=== PATIENT | female | born 1950 | race Caucasian/White ===

== ENCOUNTER 2019-02-07 03:54 | Inpatient (IN) | payer MEDICARE ==
[~2019-02-07] VITALS: Ht 170.2 cm; Wt 106.5 kg
[2019-02-15 13:22] VITALS: BP 107/67
== END 2019-02-15 16:50 | disposition home health service (06) | DRG 314 ==
LOC: ED 05:19 → EDIP 05:20 → CCU 06:06 → 5SO 17:33 → DCLOUNGE 02-15 16:36
PROVIDERS: ADMIT Internal Medicine; ATTEND Internal Medicine
PROC: 5A2204Z Restoration of Cardiac Rhythm, Single (ICD-10-PCS; principal; 2019-02-07)
PROC: 0W9D3ZZ Drainage of Pericardial Cavity, Percutaneous Approach (ICD-10-PCS; 2019-02-10)
PROC: 30233N1 Transfusion of Nonautologous Red Blood Cells into Peripheral Vein, Percutaneous Approach (ICD-10-PCS; 2019-02-11)
PROC: 02HV33Z Insertion of Infusion Device into Superior Vena Cava, Percutaneous Approach (ICD-10-PCS; 2019-02-15)
PROC: B5181ZA Fluoroscopy of Superior Vena Cava using Low Osmolar Contrast, Guidance (ICD-10-PCS; 2019-02-15)
PROC: B548ZZA Ultrasonography of Superior Vena Cava, Guidance (ICD-10-PCS; 2019-02-15)
DX: I30.1 Infective pericarditis (principal); E43 Unspecified severe protein-calorie malnutrition; I50.43 Acute on chronic combined systolic (congestive) and diastolic (congestive) heart failure; I13.0 Hypertensive heart and chronic kidney disease with heart failure and stage 1 through stage 4 chronic kidney disease, or unspecified chronic kidney disease; E87.1 Hypo-osmolality and hyponatremia; N39.0 Urinary tract infection, site not specified; N18.4 Chronic kidney disease, stage 4 (severe); N17.9 Acute kidney failure, unspecified; R65.10 Systemic inflammatory response syndrome (SIRS) of non-infectious origin without acute organ dysfunction; I31.3 Pericardial effusion (noninflammatory); D63.8 Anemia in other chronic diseases classified elsewhere; E03.9 Hypothyroidism, unspecified; D75.82 Heparin induced thrombocytopenia (HIT); K74.60 Unspecified cirrhosis of liver; E11.22 Type 2 diabetes mellitus with diabetic chronic kidney disease; T50.1X5A Adverse effect of loop [high-ceiling] diuretics, initial encounter; I48.0 Paroxysmal atrial fibrillation; Z90.710 Acquired absence of both cervix and uterus; Z87.891 Personal history of nicotine dependence; Z82.49 Family history of ischemic heart disease and other diseases of the circulatory system; Z79.4 Long term (current) use of insulin; Z87.442 Personal history of urinary calculi; Z90.49 Acquired absence of other specified parts of digestive tract; Y92.89 Other specified places as the place of occurrence of the external cause; Z88.8 Allergy status to other drugs, medicaments and biological substances
CPT/HCPCS: 0399T; 33010; 36415; 36573; 71045; 76705; 76930; 80048; 80053; 81001; 81003; 82040; 82306; 82533; 82542; 82550; 82570; 82728; 82962; 83036; 83540; 83550; 83605; 83615; 83735; 83880; 83970; 84100; 84145; 84156; 84157; 84436; 84443; 84484; 85014; 85018; 85025; 85610; 85730; 86022; 86160; 86162; 86225; 86850; 86900; 86923; 87040; 87070; 87077; 87081; 87147; 87186; 87205; 88112; 88305; 89051; 92960; 93005; 93306; 93308; 93321; 93325; 96374; 96375; 99152; 99156; 99157; 99291; C1729; C1769; G0378; J0690; J0712; J0878; J1644; J2250; J2704; J3010; C1751; J0282; J1160; J1815; J7030; J7040; J7060; P9016